=== PATIENT | male | born 1975 | race Caucasian/White ===

== ENCOUNTER 2018-05-28 05:43 | Observation (INO) | payer OTHER ==
[2018-05-28] MEDS ORDERED: SUCCINYLCHOLINE CHLORIDE 100 MG/5 ML SYG IV (07:00)
[2018-05-28] MEDS ORDERED: DESFLURANE 15 MIN (07:00)
[2018-05-28] MEDS ORDERED: ROCURONIUM 50 MG INJ (07:00)
[2018-05-28] MEDS ORDERED: PROPOFOL 20 ML (07:51)
[2018-05-28] MEDS ORDERED: MIDAZOLAM 1 MG/ML 2 ML INJ (07:52)
[2018-05-28] MEDS ORDERED: SUGAMMADEX SODIUM 200 MG/2 ML VIAL IV ×2 (07:52→11:39)
[2018-05-28] MEDS ORDERED: LIDOCAINE 1% (MDV) 20 ML INJ (07:52)
[2018-05-28] MEDS ORDERED: POLYMYXIN/BACITRACIN 1L IRRIG (07:52)
[2018-05-28] MEDS ORDERED: DIPHENHYDRAMINE 50 MG INJ IV (08:00)
[2018-05-28] MEDS ORDERED: hydrALAzine 20 MG INJ IV (08:00)
[2018-05-28] MEDS ORDERED: LORAZEPAM 2 MG INJ IV (08:00)
[2018-05-28] MEDS ORDERED: HYDROmorphONE 1 MG/5 ML IV SYRINGE IV ×2 (08:00→12:37)
[2018-05-28] MEDS ORDERED: LABETALOL HCL 20MG INJ IV (08:00)
[2018-05-28] MEDS ORDERED: MEPERIDINE 25 MG INJ IV (08:00)
[2018-05-28] MEDS ORDERED: CEFAZOLIN 1 GM INJ (08:34)
[2018-05-28] MEDS ORDERED: DEXAMETHASONE 4 MG/ML 5 ML INJ (08:40)
[2018-05-28] MEDS ORDERED: ONDANSETRON 4 MG INJ (08:40)
[2018-05-28] MEDS ORDERED: LABETALOL HCL 20MG INJ (08:41)
[2018-05-28] MEDS ORDERED: FENTAnyl 50 MCG/ML VIAL ×2 (09:02→11:55)
[2018-05-28] MEDS: BUPIVACAINE 0.5%/EPI (SDV) 30 ML INJ (09:03)
[2018-05-28] MEDS: GELATIN SIZE 100 SPONGE (09:20)
[2018-05-28] MEDS: THROMBIN (BOVINE) 5,000 UNIT VIAL TP (09:21)
[2018-05-28] MEDS: POLYMYXIN/BACITRACIN 1L IRRIG IRR (09:21)
[2018-05-28] MEDS ORDERED: PROCHLORPERAZINE 10 MG TAB PO (12:30)
[2018-05-28] MEDS ORDERED: NACL 0.9% 3 ML SYG IV (12:30)
[2018-05-28] MEDS ORDERED: NALOXONE (0.4 MG/ML) INJ IV (12:30)
[2018-05-28] MEDS ORDERED: AL HYDROX/MG HYDROX/SIMETH 30 ML CUP PO (12:30)
[2018-05-28] MEDS ORDERED: HYDROCODONE/APAP (5/325) TAB PO (12:30)
[2018-05-28] MEDS: HYDROmorphONE 1 MG/5 ML IV SYRINGE IV (12:55)
[2018-05-28] MEDS: ONDANSETRON 4 MG INJ IV (12:55)
[2018-05-28] MEDS: HYDROCODONE/APAP (5/325) TAB PO (13:01)
[2018-05-28] MEDS: HYDROmorphONE 0.2 MG/ML PCA IV (13:10)
[2018-05-28] MEDS: CEFAZOLIN 1 GM/50 ML (PMX) 50 ML IVPB ×2 (18:16→23:36)
[2018-05-28] MEDS: CEPASTAT LOZENGE MT ×2 (18:16→19:59)
[2018-05-28] MEDS: LIDOCAINE 5% PATCH TD (21:30)
[2018-05-29] MEDS: ACETAMINOPHEN 325 MG TAB PO ×2 (03:07→08:56)
[2018-05-29] MEDS: CEFAZOLIN 1 GM/50 ML (PMX) 50 ML IVPB (05:23)
[2018-05-29 05:55] LABS: HEMATOCRIT 43.2 % (42.0-52.0); HEMOGLOBIN 15.3 g/dl (14.0-18.0)
[2018-05-29 06:25] LABS: ANION GAP 9 (5-13); BLOOD UREA NITROGEN 12 mg/dl (7-20); CALCIUM 9.4 mg/dl (8.4-10.2); CARBON DIOXIDE 25 mmol/L (21-31); CHLORIDE 105 mmol/L (97-110); CREATININE 0.78 mg/dl (0.61-1.24); Estimated GFR > 60 mL/min (>60); GLUCOSE 127 mg/dl (70-220); POTASSIUM 3.9 mmol/L (3.5-5.1); SODIUM 139 mmol/L (135-144)
[2018-05-29] MEDS: ONDANSETRON 4 MG INJ IV (06:37)
[2018-05-29] MEDS: LIDOCAINE 5% PATCH TD (08:56)
[2018-05-29] MEDS: DOCUSATE SODIUM 100 MG CAP PO (09:00)
[2018-05-29] MEDS: DEXAMETHASONE 10 MG/ML 1 ML INJ IV (10:06)
== END 2018-05-29 11:47 | disposition home or self-care (01) ==
LOC: SDS 05:43 → REC 12:06 → MS1 14:13
DX: M50.122 Cervical disc disorder at C5-C6 level with radiculopathy (principal); E66.01 Morbid (severe) obesity due to excess calories; Z68.36 Body mass index [BMI] 36.0-36.9, adult
CPT/HCPCS: 22856; 72050; 80048; 85014; 85018; 86850; 86900; 86901; 88304; 97116; 97161; 99217